=== PATIENT | female | born 1970 | race Two or more races ===

== ENCOUNTER 2024-08-16 14:43 | Outpatient (CLI) | payer OTHER | END 2024-08-16 14:53 | disposition home or self-care (01) | LOC: RAD 14:43 | PROVIDERS: ATTEND Internal Medicine Pulmonary Disease | DX: M62.9 Disorder of muscle, unspecified (principal); K62.9 Disease of anus and rectum, unspecified; M99.05 Segmental and somatic dysfunction of pelvic region; K59.00 Constipation, unspecified ==